=== PATIENT | female | born 1990 | race Caucasian/White ===

== ENCOUNTER 2022-02-13 15:00 | Inpatient (IN) | payer MEDICAID ==
[~2022-02-13] VITALS: Ht 167.6 cm; Wt 64.9 kg
[2022-02-13] MEDS ORDERED: DiphenhydrAMINE HCL 50 MG/ML VIAL IM ONE (15:30)
[2022-02-13] MEDS ORDERED: HALOPERIDOL LACTATE 5 MG/ML VIAL IM ONE (15:30)
[2022-02-13] MEDS ORDERED: DIAZEPAM 5 MG/ML 2 ML SYRINGE IM ONE (15:30)
[2022-02-13 16:46] LABS: COVID AG,FIA SOURCE NASOPHARYNGEAL
[2022-02-13 16:46] LABS: BASOPHILS % (AUTO) 1.1 % (0.0-2.0); EOSINOPHILS % (AUTO) 0.6 % (1.0-6.0); HEMATOCRIT 32.8 % (36-46); HEMOGLOBIN 11.1 g/dL (12.0-16.0); LYMPHOCYTES # (AUTO) 1.6 K/uL (1.0-4.8); LYMPHOCYTES % (AUTO) 35.2 % (22.0-44.0); MEAN CORPUSCULAR HEMOGLOBIN 30.6 pg (26.0-34.0); MEAN CORPUSCULAR HGB CONC 33.9 G/dL (31.0-37.0); MEAN CORPUSCULAR VOLUME 91 fL (80-100); MONOCYTES # (AUTO) 0.6 K/uL (0.1-1.0); MONOCYTES % (AUTO) 12.6 % (2.0-9.0); NEUTROPHILS # (AUTO) 2.4 K/uL (1.8-7.7); NEUTROPHILS % (AUTO) 50.5 % (40.0-70.0); PLATELET COUNT (AUTO) 288 K/uL (150-450); RED BLOOD CELL COUNT(AUTO) 3.62 MIL/uL (4.00-5.20); RED CELL DISTRIBUTION WIDTH 14.2 % (11.5-14.5)
[2022-02-13] MEDS ORDERED: ZOLPIDEM TARTRATE 10 MG TABLET PO PRN (17:00)
[2022-02-13] MEDS ORDERED: OLANZapine 5 MG RAPDIS TABLET PO PRN (17:00)
[2022-02-13 17:01] LABS: ALANINE AMINOTRANSFERASE 25 U/L (12-78); ALBUMIN 3.1 g/dL (3.4-5.0); ALKALINE PHOSPHATASE 42 U/L (46-116); ANION GAP 10 mmol/L (8-16); ASPARTATE AMINOTRANSFERASE 24 U/L (15-37); BILIRUBIN,TOTAL 0.3 mg/dL (0.1-1.0); CALCIUM, TOTAL 8.6 mg/dL (8.8-10.5); CARBON DIOXIDE 24 mmol/L (22-29); CHLORIDE 107 mmol/L (98-107); CREATININE 0.97 mg/dL (0.60-1.30); GLOMERULAR FILTR. RATE CALC > 60 mL/min (>60); GLUCOSE,RANDOM 100 mg/dL (70-110); SODIUM SERUM 141 mmol/L (136-145); TOTAL PROTEIN, SERUM 6.7 g/dL (6.4-8.2); UREA NITROGEN, BLOOD 6 mg/dL (7-18)
[2022-02-13] MEDS ORDERED: ACETAMINOPHEN 325 MG TABLET PO PRN (21:00)
[2022-02-13] MEDS ORDERED: OLANZapine 5 MG RAPDIS TABLET PO ONE (21:00)
[2022-02-13] MEDS ORDERED: GuaiFENesin/D-METHORPHAN [SUGAR-FREE] 200-20MG/10 ML SYRUP UDCUP PO PRN (21:00)
[2022-02-13] MEDS ORDERED: LOPERAMIDE HCL 2 MG CAPSULE PO PRN (21:00)
[2022-02-13] MEDS ORDERED: MAG HYDROX/AL HYDROX/SIMETH ES 30 ML SUSPENSION UDCUP PO PRN (21:00)
[2022-02-13] MEDS ORDERED: HydrOXYzine PAMOATE 50 MG CAPSULE PO PRN (21:00)
[2022-02-13] MEDS ORDERED: TUBERCULIN, PURIFIED PROTEIN DERIVATIVE 5 TU/0.1 ML SYRINGE ID ONE (21:00)
[2022-02-13] MEDS ORDERED: MAGNESIUM HYDROXIDE SUSPENSION 30 ML UDCUP PO PRN (21:00)
[2022-02-13] MEDS ORDERED: DIVALPROEX SODIUM 500 MG ER TABLET PO ONE (21:00)
[2022-02-13] MEDS: MELATONIN 5 MG TABLET PO SCH (22:50)
[2022-02-13 23:52] VITALS: BP 135/65
[2022-02-14 03:57] VITALS: BP 126/69
[2022-02-14 07:35] LABS: HEMOGLOBIN A1C 4.7 % (3.8-5.6)
[2022-02-14 07:43] LABS: CHOL/HDL RATIO 1.8 (3.9-5.7); CHOLESTEROL 138 mg/dL (131-200); FREE T4 (FREE THYROXINE) 1.42 ng/dL (0.76-1.46); HCG,QUANTITATIVE < 1 mIU/mL (0-6); HDL CHOLESTEROL 76 mg/dL (40-60); LDL CHOL (CALC.) 45 mg/dL (0-130); THYROID STIMULATING HORMONE 0.45 uIU/mL (0.36-3.74); TRIGLYCERIDES 87 mg/dL (15-150)
[2022-02-14] MEDS ORDERED: POTASSIUM CHLORIDE 20 MEQ ER TABLET PO ONE ×2 (08:00→21:00)
[2022-02-14] MEDS: NALTREXONE HCL 50 MG TABLET PO SCH (09:00)
[2022-02-14] MEDS: MULTIVITAMINS WITH MINERALS, THERAPEUTIC TABLET PO SCH (09:00)
[2022-02-14] MEDS: OMEGA-3/DHA/EPA/FISH OIL 1,000 MG CAPSULE PO SCH (09:00)
[2022-02-14] MEDS: FOLIC ACID 1 MG TABLET PO SCH (09:01)
[2022-02-14] MEDS: THIAMINE 100 MG TABLET PO SCH ×2 (09:01→16:16)
[2022-02-14 11:19] VITALS: BP 123/79
[2022-02-14] MEDS: MELATONIN 5 MG TABLET PO SCH (20:10)
[2022-02-14] MEDS ORDERED: OLANZapine 5 MG RAPDIS TABLET PO SCH (21:00)
[2022-02-14] MEDS ORDERED: LITHIUM CARBONATE 300 MG TABLET PO SCH (21:00)
[2022-02-14] MEDS ORDERED: DIVALPROEX SODIUM 500 MG ER TABLET PO SCH (21:00)
[2022-02-14] MEDS: LORazepam 2 MG TABLET PO PRN (21:20)
[2022-02-14 21:57] VITALS: BP 138/89
[2022-02-15 06:57] LABS: ANION GAP 8 mmol/L (8-16); CARBON DIOXIDE 25 mmol/L (22-29); CHLORIDE 108 mmol/L (98-107); CREATININE 0.83 mg/dL (0.60-1.30); GLUCOSE,RANDOM 101 mg/dL (70-110); POTASSIUM 3.8 mmol/L (3.5-5.1); SODIUM SERUM 141 mmol/L (136-145); UREA NITROGEN, BLOOD 5 mg/dL (7-18)
[2022-02-15 07:08] LABS: GLOMERULAR FILTR. RATE CALC > 60 mL/min (>60)
[2022-02-15 08:00] VITALS: BP 147/95
[2022-02-15] MEDS: FOLIC ACID 1 MG TABLET PO SCH (08:22)
[2022-02-15] MEDS: MULTIVITAMINS WITH MINERALS, THERAPEUTIC TABLET PO SCH (08:22)
[2022-02-15] MEDS: NALTREXONE HCL 50 MG TABLET PO SCH (08:22)
[2022-02-15] MEDS: THIAMINE 100 MG TABLET PO SCH (08:22)
[2022-02-15] MEDS: OMEGA-3/DHA/EPA/FISH OIL 1,000 MG CAPSULE PO SCH (08:22)
[2022-02-15] MEDS ORDERED: ESCITALOPRAM OXALATE 20 MG TABLET PO SCH (09:00)
[2022-02-15] MEDS: LORazepam 2 MG TABLET PO PRN (12:52)
[2022-02-15] MEDS ORDERED: NALT50TA PO (13:36)
[2022-02-15] MEDS ORDERED: ESCI20TA87 PO (13:36)
[2022-02-15] MEDS ORDERED: LITH300T PO (13:36)
[2022-02-15] MEDS ORDERED: MELA5TAB40 PO (13:36)
[2022-02-15] MEDS ORDERED: OMEG-108 PO (13:36)
[2022-02-15 14:22] VITALS: BP 130/88
== END 2022-02-15 16:07 | disposition home or self-care (01) | DRG 753 ==
LOC: EMS 15:00 → B3A 19:50
PROVIDERS: ADMIT Psychiatry & Neurology Psychiatry; ATTEND Psychiatry & Neurology Psychiatry
DX: F31.30 Bipolar disorder, current episode depressed, mild or moderate severity, unspecified (principal); Z91.19 Patient's noncompliance with other medical treatment and regimen; D64.9 Anemia, unspecified; Z20.822 Contact with and (suspected) exposure to COVID-19; Z88.8 Allergy status to other drugs, medicaments and biological substances; Z79.899 Other long term (current) drug therapy
CPT/HCPCS: 80048; 80053; 80061; 83036; 84439; 84443; 84702; 85025; 86592; 99291; G0480; J1200; J1630; Q9967

== ENCOUNTER 2022-03-22 09:52 | Inpatient (IN) | payer MEDICAID ==
[~2022-03-22] VITALS: Ht 160 cm; Wt 63.6 kg
[~2022-03-22 09:52] MED LIST: ESCI20TA87 PO; LITH300T PO; MELA5TAB40 PO; NALT50TA PO; OMEG-135 PO
[2022-03-22] MEDS ORDERED: LITH300T PO (10:07)
[2022-03-22] MEDS ORDERED: ARIP5TAB8 PO (10:07)
[2022-03-22 10:47] LABS: EOSINOPHILS % (AUTO) 0.7 % (1.0-6.0); HEMOGLOBIN 12.1 g/dL (12.0-16.0); LYMPHOCYTES # (AUTO) 1.6 K/uL (1.0-4.8); LYMPHOCYTES % (AUTO) 34.9 % (22.0-44.0); MEAN CORPUSCULAR HEMOGLOBIN 30.5 pg (26.0-34.0); MEAN CORPUSCULAR HGB CONC 33.7 G/dL (31.0-37.0); MEAN CORPUSCULAR VOLUME 91 fL (80-100); MONOCYTES # (AUTO) 0.6 K/uL (0.1-1.0); MONOCYTES % (AUTO) 12.6 % (2.0-9.0); NEUTROPHILS # (AUTO) 2.3 K/uL (1.8-7.7); NEUTROPHILS % (AUTO) 50.8 % (40.0-70.0); PLATELET COUNT (AUTO) 328 K/uL (150-450); RED BLOOD CELL COUNT(AUTO) 3.98 MIL/uL (4.00-5.20); RED CELL DISTRIBUTION WIDTH 13.3 % (11.5-14.5)
[2022-03-22 10:59] LABS: ANION GAP 9 mmol/L (8-16); CALCIUM, TOTAL 9.2 mg/dL (8.8-10.5); CARBON DIOXIDE 26 mmol/L (22-29); CHLORIDE 102 mmol/L (98-107); CREATININE 0.81 mg/dL (0.60-1.30); GLUCOSE,RANDOM 103 mg/dL (70-110); POTASSIUM 3.9 mmol/L (3.5-5.1); SODIUM SERUM 137 mmol/L (136-145); UREA NITROGEN, BLOOD 9 mg/dL (7-18)
[2022-03-22 11:00] LABS: GLOMERULAR FILTR. RATE CALC > 60 mL/min (>60)
[2022-03-22 11:05] LABS: ALANINE AMINOTRANSFERASE 28 U/L (12-78); ALBUMIN 3.8 g/dL (3.4-5.0); ALKALINE PHOSPHATASE 43 U/L (46-116); ASPARTATE AMINOTRANSFERASE 20 U/L (15-37); BILIRUBIN,TOTAL 0.4 mg/dL (0.1-1.0); TOTAL PROTEIN, SERUM 7.1 g/dL (6.4-8.2)
[2022-03-22] MEDS ORDERED: ZOLPIDEM TARTRATE 10 MG TABLET PO PRN (15:15)
[2022-03-22 15:16] LABS: APPEARANCE,URINE CLEAR (CLEAR); BILIRUBIN,URINE NEGATIVE (NEGATIVE); GLUCOSE, URINE (UA) NEGATIVE (NEGATIVE); KETONES,URINE NEGATIVE (NEGATIVE); LEUKOCYTE ESTERASE ,URINE NEGATIVE (NEGATIVE); NITRATE,URINE NEGATIVE (NEGATIVE); OCCULT BLOOD,URINE NEGATIVE (NEGATIVE); PROTEIN,URINE NEGATIVE (NEGATIVE); SPECIFIC GRAVITIY, URINE 1.009 (1.003-1.030); UROBILINOGEN,URINE <=1.0 mg/dL (<=1.0)
[2022-03-22 15:19] LABS: AMPHET/METH SCREEN,URINE NEGATIVE (NEGATIVE); BARBITURATE SCREEN, URINE NEGATIVE (NEGATIVE); BENZODIAZEPINES SCREEN,URINE NEGATIVE (NEGATIVE); CANNABINOID SCREEN,URINE NEGATIVE (NEGATIVE); COCAINE SCREEN,URINE NEGATIVE (NEGATIVE); METHADONE SCREEN, URINE NEGATIVE (NEGATIVE); OPIATE SCREEN,URINE NEGATIVE (NEGATIVE)
[2022-03-22 15:20] LABS: PHENCYCLIDINE SCREEN,URINE NEGATIVE (NEGATIVE)
[2022-03-22 15:51] LABS: BACTERIA,URINE None Seen /HPF (None Seen); RBC,URINE None Seen /HPF (0-2); WBC,URINE 0-2 /HPF (0-5)
[2022-03-22 19:06] LABS: COVID AG,FIA SOURCE NASAL SWAB
[2022-03-22] MEDS: LORazepam 2 MG TABLET PO PRN (20:00)
[2022-03-23] MEDS: LORazepam 2 MG TABLET PO PRN ×2 (05:15→12:06)
[2022-03-23] MEDS: HALOPERIDOL 5 MG TABLET PO PRN (12:06)
[2022-03-23 14:35] VITALS: BP 106/71
[2022-03-23 21:20] VITALS: BP_SYST 123
[2022-03-24] MEDS: FOLIC ACID 1 MG TABLET PO SCH (08:28)
[2022-03-24] MEDS: THIAMINE 100 MG TABLET PO SCH ×2 (08:28→16:18)
[2022-03-24] MEDS: MULTIVITAMINS, THERAPEUTIC TABLET PO SCH (08:28)
[2022-03-24 09:44] VITALS: BP 127/76
[2022-03-24] MEDS: HALOPERIDOL 5 MG TABLET PO PRN (13:32)
[2022-03-24] MEDS ORDERED: ACETAMINOPHEN 325 MG TABLET PO PRN (14:30)
[2022-03-24] MEDS ORDERED: MAG HYDROX/AL HYDROX/SIMETH ES 30 ML SUSPENSION UDCUP PO PRN (14:30)
[2022-03-24] MEDS ORDERED: ONDANSETRON HCL 4 MG TABLET PO PRN (14:30)
[2022-03-24] MEDS ORDERED: BENZOCAINE/MENTHOL LOZENGE PO PRN (14:30)
[2022-03-24] MEDS ORDERED: OMEPRAZOLE 20 MG CAPSULE PO PRN (14:30)
[2022-03-24] MEDS ORDERED: DOCUSATE SODIUM 100 MG CAPSULE PO PRN (14:30)
[2022-03-24] MEDS ORDERED: ALBUTEROL SULFATE HFA 90 MCG/PUFF 8 GM INHALER IH PRN (14:30)
[2022-03-24] MEDS ORDERED: MAGNESIUM HYDROXIDE SUSPENSION 30 ML UDCUP PO PRN (14:30)
[2022-03-24] MEDS ORDERED: CloNIDine HCL 0.1 MG TABLET PO PRN (14:30)
[2022-03-24] MEDS ORDERED: PETROLATUM,WHITE 28 GM JELLY TP PRN (14:30)
[2022-03-24] MEDS ORDERED: BACITRACIN 28 GM OINTMENT TP PRN (14:30)
[2022-03-24] MEDS ORDERED: LOPERAMIDE HCL 2 MG CAPSULE PO PRN (14:30)
[2022-03-24] MEDS: LITHIUM CARBONATE 300 MG CAPSULE PO SCH (18:23)
[2022-03-24] MEDS: RisperiDONE 2 MG TABLET PO SCH (18:23)
[2022-03-24] MEDS: DIVALPROEX SODIUM 500 MG DR TABLET PO SCH (18:23)
[2022-03-24 21:10] VITALS: BP 132/82
[2022-03-25] MEDS: DIVALPROEX SODIUM 500 MG DR TABLET PO SCH ×2 (08:32→16:23)
[2022-03-25] MEDS: MULTIVITAMINS, THERAPEUTIC TABLET PO SCH (08:32)
[2022-03-25] MEDS: FOLIC ACID 1 MG TABLET PO SCH (08:32)
[2022-03-25] MEDS: RisperiDONE 2 MG TABLET PO SCH ×2 (08:32→16:23)
[2022-03-25] MEDS: LITHIUM CARBONATE 300 MG CAPSULE PO SCH ×2 (08:32→16:23)
[2022-03-25] MEDS: THIAMINE 100 MG TABLET PO SCH ×2 (08:32→16:23)
[2022-03-25 08:33] VITALS: BP 114/68
[2022-03-25] MEDS: HALOPERIDOL 5 MG TABLET PO PRN (09:24)
[2022-03-25 20:36] VITALS: BP 106/69
[2022-03-26] MEDS: FOLIC ACID 1 MG TABLET PO SCH (08:17)
[2022-03-26] MEDS: MULTIVITAMINS, THERAPEUTIC TABLET PO SCH (08:17)
[2022-03-26] MEDS: THIAMINE 100 MG TABLET PO SCH ×2 (08:17→16:18)
[2022-03-26] MEDS: RisperiDONE 2 MG TABLET PO SCH ×2 (08:17→16:18)
[2022-03-26] MEDS: DIVALPROEX SODIUM 500 MG DR TABLET PO SCH ×2 (08:18→16:18)
[2022-03-26] MEDS: LITHIUM CARBONATE 300 MG CAPSULE PO SCH ×2 (08:18→16:18)
[2022-03-26 08:32] VITALS: BP 127/67
[2022-03-26 20:16] VITALS: BP 112/82
[2022-03-27] MEDS: FOLIC ACID 1 MG TABLET PO SCH (08:21)
[2022-03-27] MEDS: THIAMINE 100 MG TABLET PO SCH ×2 (08:23→16:27)
[2022-03-27] MEDS: MULTIVITAMINS, THERAPEUTIC TABLET PO SCH (08:24)
[2022-03-27] MEDS: RisperiDONE 2 MG TABLET PO SCH ×2 (08:24→16:27)
[2022-03-27] MEDS: LITHIUM CARBONATE 300 MG CAPSULE PO SCH ×2 (08:24→16:27)
[2022-03-27 08:39] VITALS: BP 103/66
[2022-03-27] MEDS: DIVALPROEX SODIUM 500 MG DR TABLET PO SCH ×2 (08:58→16:27)
[2022-03-27 16:27] VITALS: BP 126/65
[2022-03-27] MEDS: IBUPROFEN 600 MG TABLET PO PRN (16:27)
[2022-03-27 20:24] VITALS: BP 125/83
[2022-03-28 02:37] VITALS: BP 110/63
[2022-03-28] MEDS: LORazepam 2 MG TABLET PO PRN ×3 (02:39→17:57)
[2022-03-28 08:10] VITALS: BP 130/74
[2022-03-28] MEDS: DIVALPROEX SODIUM 500 MG DR TABLET PO SCH ×2 (08:16→17:14)
[2022-03-28] MEDS: RisperiDONE 2 MG TABLET PO SCH ×2 (08:16→17:14)
[2022-03-28] MEDS: MULTIVITAMINS, THERAPEUTIC TABLET PO SCH (08:16)
[2022-03-28] MEDS: FOLIC ACID 1 MG TABLET PO SCH (08:16)
[2022-03-28] MEDS: LITHIUM CARBONATE 300 MG CAPSULE PO SCH ×2 (08:16→17:14)
[2022-03-28] MEDS: THIAMINE 100 MG TABLET PO SCH ×2 (08:16→17:14)
[2022-03-28 20:32] VITALS: BP 130/74
[2022-03-29 02:12] VITALS: BP 119/88
[2022-03-29] MEDS: LITHIUM CARBONATE 300 MG CAPSULE PO SCH (08:31)
[2022-03-29] MEDS: THIAMINE 100 MG TABLET PO SCH (08:31)
[2022-03-29] MEDS: FOLIC ACID 1 MG TABLET PO SCH (08:31)
[2022-03-29] MEDS: RisperiDONE 2 MG TABLET PO SCH (08:31)
[2022-03-29] MEDS: DIVALPROEX SODIUM 500 MG DR TABLET PO SCH (08:31)
[2022-03-29] MEDS: MULTIVITAMINS, THERAPEUTIC TABLET PO SCH (08:31)
[2022-03-29 08:34] VITALS: BP 120/77
[2022-03-29 09:16] LABS: LITHIUM 0.53 mmol/L (0.60-1.20)
[2022-03-29] MEDS: IBUPROFEN 600 MG TABLET PO PRN (09:21)
[2022-03-29 09:28] LABS: FREE T4 (FREE THYROXINE) 0.99 ng/dL (0.76-1.46); THYROID STIMULATING HORMONE 1.48 uIU/mL (0.36-3.74)
[2022-03-29 09:57] VITALS: BP_SYST 103; BP_SYST 120; BP_DIAS 76
[2022-03-29] MEDS ORDERED: DIVA-112 PO (10:15)
[2022-03-29] MEDS ORDERED: LITH300C3 PO (10:15)
[2022-03-29] MEDS ORDERED: RISP2TAB86 PO (10:15)
== END 2022-03-29 10:55 | disposition home or self-care (01) | DRG 750 ==
LOC: EMS 09:52 → B3A 03-23 11:30
PROVIDERS: ADMIT Psychiatry & Neurology Psychiatry; ATTEND Psychiatry & Neurology Psychiatry
DX: F25.9 Schizoaffective disorder, unspecified (principal); E66.9 Obesity, unspecified; F41.9 Anxiety disorder, unspecified; Z20.822 Contact with and (suspected) exposure to COVID-19; K59.00 Constipation, unspecified; F12.90 Cannabis use, unspecified, uncomplicated; G47.00 Insomnia, unspecified; Z68.24 Body mass index [BMI] 24.0-24.9, adult; Z88.8 Allergy status to other drugs, medicaments and biological substances; Z72.89 Other problems related to lifestyle
CPT/HCPCS: 80053; 80061; 80164; 80178; 81001; 84439; 84443; 85025; 99285; G0480